=== PATIENT | female | born 1930 | race Caucasian/White ===

== ENCOUNTER → 2017-08-22 | Outpatient (CLI) | payer MEDICARE, OTHER | LOC: M.RAD 11:51 | DX: J98.4 Other disorders of lung (principal); M19.011 Primary osteoarthritis, right shoulder; M19.012 Primary osteoarthritis, left shoulder ==

== ENCOUNTER → 2017-10-26 | Outpatient (CLI) | payer MEDICARE, OTHER ==
--- NOTE | 2017-10-26 11:23 | 2DMMODE ---
[place] [address] 2 D/M-MODE ECHOCARDIOGRAM Name: Ronny MARTINEZ Room: [facility]#: [id number] Admission: 10/26/17 Attend Phys: Henrry Wilburn, Discharge: Date of : [birth year] Date of Service: 10/26/17 1123 Report #: [id number] THIS REPORT FOR: //name// APPROVED REPORT Study performed: 10/26/2017 09:02:26 EXAM: Comprehensive 2D, Doppler, and color-flow Echocardiogram Patient Location: Out-Patient Status: routine BSA: 1.83 HR: 88 bpm BP: 150/98 mmHg Other Information Study Quality: Good Indications Dyspnea 2D Dimensions LVEF(%): 44.24 (>50%) IVSd: 17.38 (7-11mm) LVOT Diam: 20.44 (18-24mm) LVDd: 37.87 mm PWd: 10.66 (7-11mm) Ascending Ao: 25.07 (22-36mm) LVDs: 29.74 (25-40mm) Aortic Root: 28.03 mm Jaime's LVEF: 44.24 % Volumes Left Atrial Volume (Systole) LA ESV Index: 15.50 mL/m2 Aortic Valve AoV Peak Raghavendra.: 1.30 m/s AO Peak Gr.: 6.71 mmHg LVOT Max P.45 mmHg AO Mean Gr.: 3.38 mmHg LVOT Mean P.58 mmHg LVOT Max V: 0.93 m/s AO V2 VTI: 23.22 cm LVOT Mean V: 0.57 m/s DORIS (VTI): 2.58 cm2 LVOT V1 VTI: 18.28 cm Mitral Valve E/A Ratio: 1.03 MV Decel. Time: 194.76 [place] [address] 2 D/M-MODE ECHOCARDIOGRAM Name: Ronny MARTINEZ Room: [facility]#: [id number] Admission: 10/26/17 Attend Phys: Henrry Wilburn, Discharge: Date of : [birth year] Date of Service: 10/26/17 1123 Report #: [id number] MV E Max Raghavendra.: 0.86 m/s MV PHT: 56.48 ms MVA (PHT): 3.90 cm2 TDI E/Lateral E': 9.56 E/Medial E': 10.75 Medial E' Raghavendra.: 0.08 m/s Lateral E' Raghavendra.: 0.09 m/s Pulmonary Valve PV Peak Raghavendra.: 0.85 m/s PV Peak Gr.: 2.87 mmHg Tricuspid Valve RAP Estimate: 5.00 mmHg TR Peak Gr.: 28.14 mmHg RVSP: 33.14 mmHg PA Pressure: 33.14 mmHg Left Ventricle The left ventricle is normal size. There is normal LV segmental wall motion. There is normal left ventricular wall thickness. Left ventricular systolic function is normal. The left ventricular ejection fraction is within the normal range. LVEF is 55%. The left ventricular diastolic function is normal. Right Ventricle The right ventricle is normal size. The right ventricular systolic function is normal. Atria The left atrium size is normal. The right atrium size is normal. Aortic Valve The aortic valve is normal in structure. No aortic regurgitation is present. There is no aortic valvular stenosis. Mitral Valve There is mild mitral annular calcification. Mild mitral regurgitation. No evidence of mitral valve stenosis. Tricuspid Valve The tricuspid valve is normal in structure. Mild tricuspid regurgitation. Pulmonic Valve The pulmonary valve is normal in structure. [place] [address] 2 D/M-MODE ECHOCARDIOGRAM Name: MICHELLERonny LYSSA Room: [facility]#: [id number] Admission: 10/26/17 Attend Phys: Henrry Wilburn, Discharge: Date of : [birth year] Date of Service: 10/26/17 1123 Report #: [id number] valvular regurgitation. Great Vessels The aortic root is normal in size. IVC is normal in size and collapses with >50% inspiration Pericardium There is no pericardial effusion. <Conclusion> The left ventricle is normal size. There is normal left ventricular wall thickness. Left ventricular systolic function is normal. The left ventricular ejection fraction is within the normal range. LVEF is 55%. The left ventricular diastolic function is normal. The right ventricle is normal size. The left atrium size is normal. The aortic valve is normal in structure. There is mild mitral annular calcification. Mild mitral regurgitation. No evidence of mitral valve stenosis. The tricuspid valve is normal in structure. Mild tricuspid regurgitation. IVC is normal in size and collapses with >50% inspiration There is no pericardial effusion. There is normal LV segmental wall motion. <ELECTRONICALLY SIGNED> By: Fritz Issa MD, FACC 10/26/17 1123 22 112 Fritz Issa MD, FACC /INF
== END ==
LOC: M.CRD 08:31
DX: I08.1 Rheumatic disorders of both mitral and tricuspid valves (principal); I45.10 Unspecified right bundle-branch block